=== PATIENT | female | born 1975 | race Two or more races ===

== ENCOUNTER 2019-09-16 20:45 | Emergency (ER) | payer MEDICAID, OTHER ==
[~2019-09-16] VITALS: Ht 167.6 cm; Wt 49.9 kg
[2019-09-16 21:07] VITALS: BP 101/60
--- NOTE | 2019-09-16 21:16 | NUR ---
Patient discharged to home in stable condition. Written and verbal after care instructions given. Patient verbalizes understanding of instruction. Pt ambulatory with a steady gait
== END 2019-09-16 21:22 | disposition home or self-care (01) ==
LOC: ER 20:45
DX: F32.9 Major depressive disorder, single episode, unspecified (principal); Z76.0 Encounter for issue of repeat prescription; Z60.2 Problems related to living alone